=== PATIENT | female | born 1960 | race Caucasian/White ===

== ENCOUNTER → 2016-03-28 | Outpatient (CLI) | payer OTHER ==
[~2016-03-28] MED LIST: CALC600T21 PO; DOCU10CA PO; IBUP80TA PO; MAGN250T5 PO; MULTCAP PO; PERCOCET PO; RANI15TA PO; clonazepam OR
--- NOTE | 2016-03-28 08:13 | REP ---
Clinical: Chest pain and abnormality on the outside x-ray. Comparison: 11/15/2013, 10/09/2012. Findings: Mild COPD/emphysematous changes involving the upper lung zones (right greater than left) is suggested. A small focal density in the right lower lobe adjacent to the major fissure (image 53) along with two small noncalcified nodules in the periphery of the left lower lobe (image 82, 94) are essentially unchanged when compared to 2013. A small area of ground-glass / alveolar opacity in the lingula may reflect mild early versus resolving area of pneumonia. No further areas of consolidation, atelectasis, significant nodule or mass lesion appreciated. No pleural effusion/reaction or pneumothorax. Tracheobronchial tree is patent. No obvious adenopathy. Mediastinum demonstrates minimal atherosclerotic changes to the thoracic aorta and coronary arteries without cardiomegaly, pericardial effusion, or aortic aneurysm. Surrounding musculoskeletal structures are intact. Limited evaluation of the upper abdomen demonstrates normal bilateral adrenal glands. Impression: Roughly three small areas of chronic density remain essentially unchanged compared to 2013. Small subtle areas of alveolar/ground-glass infiltrate in the lingular segment of the left upper lobe may reflect acute versus resolving pneumonia and should be correlated clinically. Signed by Tomas Teague MD 03/28/2016 08:04 A
== END | disposition home or self-care (01) ==
LOC: M RAD 06:55
PROVIDERS: ATTEND Internal Medicine
DX: R91.8 Other nonspecific abnormal finding of lung field (principal); J44.9 Chronic obstructive pulmonary disease, unspecified

== ENCOUNTER → 2016-04-16 | Outpatient (REF) | payer OTHER ==
[2016-04-16 15:42] LABS: EOS # 0.1 K/mm3 (0.0-0.50); EOS % 1.3 % (0.0-3.0); LARGE UNSTAINED CELL # 0.1 K/mm3 (0.0-0.4); LYMPH # 1.6 K/mm3 (1.5-4.5); LYMPH % 33.7 % (24.0-44.0); MEAN CORPUSCULAR HEMOGLOBIN 29.9 pg (27.0-33.0); MEAN CORPUSCULAR HGB CONC 33.4 g/dl (32.0-36.5); MEAN CORPUSCULAR VOLUME 89.6 fl (80.0-96.0); MONO # 0.2 K/mm3 (0.0-0.8); MONO % 3.8 % (0.0-5.0); NEUTROPHILS # 2.7 K/mm3 (1.8-7.7); NEUTROPHILS % 57.1 % (36.0-66.0); PLATELET COUNT, AUTOMATED 327 k/mm3 (150-450); RED CELL DISTRIBUTION WIDTH 12.6 % (11.5-14.5); WHITE BLOOD COUNT 4.6 K/mm3 (4.0-10.0)
[2016-04-16 15:50] LABS: INR 0.92
[2016-04-16 16:14] LABS: ALBUMIN/GLOBULIN RATIO 1.29 (1.00-1.93); ALKALINE PHOSPHATASE 75 U/L (45-117); ALT/SGPT 21 U/L (12-78); ANION GAP 10 MEQ/L (8-16); AST/SGOT 16 U/L (15-37); BILIRUBIN,TOTAL 0.7 MG/DL (0.2-1.0); BLOOD UREA NITROGEN 13 MG/DL (7-18); CALCIUM LEVEL 9.1 MG/DL (8.5-10.1); CARBON DIOXIDE LEVEL 25 MEQ/L (21-32); CHLORIDE LEVEL 107 MEQ/L (98-107); CREATININE FOR GFR 0.82 MG/DL (0.55-1.02); GLOMERULAR FILTRATION RATE > 60.0 (>51); GLUCOSE, FASTING 91 MG/DL (70-105); POTASSIUM SERUM 4.1 MEQ/L (3.5-5.1); SODIUM LEVEL 142 MEQ/L (136-145); TOTAL PROTEIN 7.1 GM/DL (6.4-8.2)
[2016-04-16 16:27] LABS: ERYTHROCYTE SEDIMENTATION RATE 7 mm/hr (0-30)
[2016-04-19 00:07] LABS: Lyme Disease IgG/IgM Antibodie <0.91 ISR (0.00-0.90); Lyme Disease IgM Ab Quantitati <0.80 index (0.00-0.79)
== END ==
LOC: M LABDRAW1 15:27
PROVIDERS: ATTEND Internal Medicine Rheumatology
DX: Z51.81 Encounter for therapeutic drug level monitoring (principal); Z79.899 Other long term (current) drug therapy; M35.9 Systemic involvement of connective tissue, unspecified; E55.9 Vitamin D deficiency, unspecified; R53.83 Other fatigue; E23.3 Hypothalamic dysfunction, not elsewhere classified

== ENCOUNTER → 2016-07-01 | Outpatient (CLI) | payer OTHER ==
[~2016-07-01] VITALS: Ht 170.2 cm; Wt 70.8 kg
[~2016-07-01] MED LIST changes: +ACID1CAP PO; +CLAR10CA3 PO; +IBUP200C PO; +LIDOCAINE 2% INJ 100 MG/5 ML SDV (FOR ANES.) As Ordered ONE; +NEXI20CA PO; +NS 1,000 ML IV ONE; +PROPOFOL 200 MG/20 ML VIAL As Ordered ONE
--- NOTE | 2016-07-01 11:10 | ROOR ---
Patient Name: Nica Mccarthy Procedure Date: 07/01/2016 10:56 AM Date of : 1960 Age: 56 Room: [facility] Gender: Female Note Status: Finalized Procedure: Upper GI endoscopy Indications: Abdominal pain in the right upper quadrant, Heartburn, Follow-up of irritable bowel syndrome Providers: Wellington CONNER MD Referring MD: GLORIA CASRTO MD Requesting Provider: Medicines: Monitored Anesthesia Care Complications: No immediate complications. Procedure: Pre-Anesthesia Assessment: - The heart rate, respiratory rate, oxygen saturations, blood pressure, adequacy of pulmonary ventilation, and response to care were monitored throughout the procedure. The Endoscope was introduced through the mouth, and advanced to the third part of duodenum. The upper GI endoscopy was accomplished without difficulty. The patient tolerated the procedure well. Findings: A small scar was found in the lower third of the esophagus. The scar was unremarkable in appearance. A few small sessile fundic gland polyps were found in the gastric body. The esophagus was normal. The stomach was normal. The examined duodenum was normal. Impression: - Normal esophagus. Small Scar in the lower third of the esophagus - Normal stomach. A few small fundic gland polyps - Normal examined duodenum. - No specimens collected. Recommendation: - Observe patient's clinical course. - I anticipate no further need for intervention. - Continue present medications. Wellington Conner MD Wellington CONNER MD 07/01/2016 11:10:17 AM This report has been signed electronically. Number of Addenda: 0 Note Initiated On: 07/01/2016 10:56 AM Estimated Blood Loss: Estimated blood loss: none. Estimated blood loss: none.
[2016-07-01 11:30] VITALS: BP 140/86
== END | disposition home or self-care (01) ==
LOC: M OPP 09:58
PROVIDERS: ATTEND Internal Medicine Gastroenterology
DX: R10.11 Right upper quadrant pain (principal); R12 Heartburn; K58.9 Irritable bowel syndrome, unspecified; K22.8 Other specified diseases of esophagus; K31.7 Polyp of stomach and duodenum; M19.90 Unspecified osteoarthritis, unspecified site; M54.2 Cervicalgia; R06.83 Snoring; D64.9 Anemia, unspecified; Z85.828 Personal history of other malignant neoplasm of skin; Z87.891 Personal history of nicotine dependence; Z88.8 Allergy status to other drugs, medicaments and biological substances; Z91.040 Latex allergy status; Z91.048 Other nonmedicinal substance allergy status; Z79.899 Other long term (current) drug therapy; Z80.1 Family history of malignant neoplasm of trachea, bronchus and lung

== ENCOUNTER → 2018-08-05 | Outpatient (CLI) | payer OTHER ==
[~2018-08-05] MED LIST changes: -CALC600T21 PO; +CALC600T60 PO; -IBUP200C PO; +IBUP200C25 PO; -LIDOCAINE 2% INJ 100 MG/5 ML SDV (FOR ANES.) As Ordered ONE; -MAGN250T5 PO; +MAGN250T6 PO; -NS 1,000 ML IV ONE; -PROPOFOL 200 MG/20 ML VIAL As Ordered ONE
[2018-08-05 15:33] LABS: BASO # 0.1 10^3/uL (0.0-0.2); BASO % 1.3 % (0.0-1.0); EOS # 0.1 10^3/uL (0.0-0.50); EOS % 2.8 % (0.0-3.0); HEMATOCRIT 37.5 % (36.0-47.0); HEMOGLOBIN 12.7 g/dl (12.0-15.5); LYMPH # 1.8 10^3/uL (1.5-4.5); LYMPH % 38.5 % (24.0-44.0); MEAN CORPUSCULAR HEMOGLOBIN 30.7 pg (27.0-33.0); MEAN CORPUSCULAR HGB CONC 33.9 g/dl (32.0-36.5); MEAN CORPUSCULAR VOLUME 90.6 fl (80.0-96.0); MONO # 0.4 10^3/uL (0.0-0.8); MONO % 7.7 % (0.0-5.0); NEUTROPHILS # 2.3 10^3/uL (1.8-7.7); NEUTROPHILS % 49.5 % (36.0-66.0); PLATELET COUNT, AUTOMATED 281 10^3/uL (150-450); RED BLOOD COUNT 4.14 10^6/uL (4.00-5.40); WHITE BLOOD COUNT 4.7 10^3/uL (4.0-10.0)
[2018-08-05 15:51] LABS: ALBUMIN 3.8 GM/DL (3.2-5.2); ALT/SGPT 23 U/L (12-78); BILIRUBIN,TOTAL 0.6 MG/DL (0.2-1.0); BLOOD UREA NITROGEN 19 MG/DL (7-18); CALCIUM LEVEL 8.3 MG/DL (8.5-10.1); CARBON DIOXIDE LEVEL 27 MEQ/L (21-32); CHLORIDE LEVEL 110 MEQ/L (98-107); FREE T4 1.36 NG/DL (0.76-1.46); GLOMERULAR FILTRATION RATE > 60.0 (>51); GLUCOSE, FASTING 100 MG/DL (70-100); SODIUM LEVEL 141 MEQ/L (136-145); TOTAL PROTEIN 7.2 GM/DL (6.4-8.2)
== END ==
LOC: M LAB 14:32
PROVIDERS: ATTEND Internal Medicine Gastroenterology
DX: R10.9 Unspecified abdominal pain (principal)

== ENCOUNTER 2018-10-09 10:27 | Day surgery (SDC) | payer OTHER ==
[~2018-10-09] VITALS: Ht 170.2 cm; Wt 70.3 kg
[~2018-10-09 10:27] MED LIST changes: +HYDR-3363 PO; +NS 1,000 ML IV ONE; +[UNRECOGNIZED DRUG - CODE] PO
[2018-10-09] MEDS ORDERED: fentaNYL 100 MCG/2 ML INJECTION (J3010) As Ordered ONE (12:36)
[2018-10-09] MEDS ORDERED: LIDOCAINE 2% INJ 100 MG/5 ML SDV (FOR ANES.) As Ordered ONE (12:36)
[2018-10-09] MEDS ORDERED: PROPOFOL 200 MG/20 ML VIAL As Ordered ONE (12:36)
--- NOTE | 2018-10-09 12:49 | ROOR ---
Patient Name: Nica Mccarthy Procedure Date: 10/09/2018 12:33 PM Date of : 1960 Age: 58 Room: [facility] Gender: Female Note Status: Finalized Procedure: Upper GI endoscopy Indications: Abdominal pain Providers: Wellington CONNER MD Referring MD: GLORIA Norris MD Requesting Provider: Medicines: Monitored Anesthesia Care Complications: No immediate complications. Procedure: Pre-Anesthesia Assessment: - The heart rate, respiratory rate, oxygen saturations, blood pressure, adequacy of pulmonary ventilation, and response to care were monitored throughout the procedure. The Endoscope was introduced through the mouth, and advanced to the second part of duodenum. The upper GI endoscopy was accomplished without difficulty. The patient tolerated the procedure well. Findings: The esophagus was normal. The stomach was normal. (compliant stomach) The examined duodenum was normal. Impression: - Normal esophagus. - Normal stomach. - Normal examined duodenum. - No specimens collected. Recommendation: - Observe patient's clinical course. - Follow an antireflux regimen. - Eat smaller, more frequent meals throughout the day. - Low fat diet. - Liquid/soft foods are tolerated better than solid foods. - Low fiber/well cooked vegetables are tolerated better than high fiber/fibrous foods/raw vegetables. - Avoid medications that inhibit gastric/intestinal motility such as narcotic medications. Wellington Conner MD Wellington CONNER MD 10/09/2018 12:49:12 PM Electronically signed by Wellington CONNER MD Number of Addenda: 0 Note Initiated On: 10/09/2018 12:33 PM Estimated Blood Loss: Estimated blood loss: none.
--- NOTE | 2018-10-09 13:04 | ROOR ---
Patient Name: Nica Mccarthy Procedure Date: 10/09/2018 12:35 PM Date of : 1960 Age: 58 Room: [facility] Gender: Female Note Status: Finalized Procedure: Colonoscopy Indications: Generalized abdominal pain, Mixed irritable bowel syndrome, Change in bowel habits Providers: Wellington CONNER MD Referring MD: GLORIA CASTRO MD Requesting Provider: Medicines: Monitored Anesthesia Care Complications: No immediate complications. Procedure: Pre-Anesthesia Assessment: - The heart rate, respiratory rate, oxygen saturations, blood pressure, adequacy of pulmonary ventilation, and response to care were monitored throughout the procedure. The Colonoscope was introduced through the anus and advanced to 10 cm into the ileum. The colonoscopy was performed without difficulty. The patient tolerated the procedure well. The quality of the bowel preparation was good. Findings: The perianal and digital rectal examinations were normal. The colon (entire examined portion) appeared normal. The terminal ileum appeared normal. Small Internal Hemorrhoids. Impression: - The entire examined colon is normal. - The examined portion of the ileum was normal. - Small Internal Hemorrhoids. - No specimens collected. Recommendation: - Continue present medications. Wellington Conner MD Wellington CONNER MD 10/09/2018 1:04:14 PM Electronically signed by Wellington CONNER MD Number of Addenda: 0 Note Initiated On: 10/09/2018 12:35 PM Estimated Blood Loss: Estimated blood loss: none.
[2018-10-09 13:34] VITALS: BP 125/91
== END 2018-10-09 13:35 | disposition home or self-care (01) ==
LOC: M OPP 10:27
PROVIDERS: ATTEND Internal Medicine Gastroenterology
DX: K64.8 Other hemorrhoids (principal); R10.84 Generalized abdominal pain; K58.2 Mixed irritable bowel syndrome; R19.4 Change in bowel habit; Z88.1 Allergy status to other antibiotic agents; Z91.048 Other nonmedicinal substance allergy status
CPT/HCPCS: 43235; 45378; J3010

== ENCOUNTER → 2019-09-30 | Outpatient (CLI) | payer OTHER ==
[~2019-09-30] MED LIST changes: +HM A5TAB4 PO; -NS 1,000 ML IV ONE; -[UNRECOGNIZED DRUG - CODE] PO
--- NOTE | 2019-11-16 09:23 | REP ---
CT CHEST WITHOUT CONTRAST HISTORY: Other nonspecific abnormal finding of lung field. COMPARISON: Chest CT study reviewed from 04/02/2016. There is a 11/15/[address] study as well. CT FINDINGS: There are surgical clips in the gallbladder fossa. No adrenal lesion is observed on either side. A small cyst is seen in the left lobe of the liver unchanged. There is no evidence of hilar or mediastinal mass or adenopathy. There is left coronary artery vascular calcification. There is a pleural-based nodule in the right lower lobe measuring 6 mm in diameter unchanged from the 11/15/2013 and 03/28/2016 prior study. There are multiple tiny subcentimeter nodules in the left lower lobe, which are also unchanged from the comparison CT study in 2013 and are felt to be benign. There is an area of linear fibrosis in the right middle lobe and a small linear fibrotic density seen in the right middle lobe anteriorly. These findings are unchanged from the comparison CT studies as well. No new pulmonary nodule is appreciated. No infiltrate is seen. The most recent prior study showed a ground- glass opacity in the left upper lobe. This is not seen today. IMPRESSION: Stable pulmonary nodules bilaterally as above. MTDD
== END ==
LOC: M RAD 11:13
PROVIDERS: ATTEND Internal Medicine Pulmonary Disease
DX: R91.8 Other nonspecific abnormal finding of lung field (principal)

== ENCOUNTER → 2020-10-11 | Outpatient (CLI) | payer OTHER ==
[~2020-10-11] MED LIST changes: -HM A5TAB4 PO; +LACT1TAB9 PO
--- NOTE | 2020-10-11 21:36 | REP ---
INDICATION: NICOTINE DEPEND H/O COMPARISON: 09/30/2019, 03/28/2016 TECHNIQUE: Axial noncontrast images from the thoracic inlet to the upper abdomen using low-dose lung screening technique (LDCT). FINDINGS: Lung mccullough demonstrate age-related interstitial changes. 6.5 mm noncalcified perifissural nodule in the right mid lung zone (series 201; image 52) along with few scattered small subpleural nodules in the left lower lobe measuring up to 3 mm remains stable through 2017. No acute consolidation, or new suspicious nodule/mass. No effusion. No pneumothorax. Tracheobronchial tree is patent. IMPRESSION: Lung-RADS category 2. Stable noncalcified nodules unchanged through 2017. Management recommendations include annual low-dose CT surveillance. <Electronically signed by Tomas Teague > 10/11/20 [id number]
== END ==
LOC: M RAD 15:25
PROVIDERS: ATTEND Internal Medicine Pulmonary Disease
DX: F17.200 Nicotine dependence, unspecified, uncomplicated (principal)

== ENCOUNTER → 2020-12-18 | Outpatient (CLI) | payer OTHER ==
--- NOTE | 2020-12-18 15:02 | REPMRS ---
Patient History The patient states she has not had a clinical breast exam in over a year. Patient is postmenopausal and has history of other cancer at age 47. Family history of breast cancer at age 77 in mother. Patient states no breast complaints today. Patient has signed MRS History Sheet. Digital Woman Screen Mammo: December 18, 2020 - Exam #: [id number] Bilateral CC and MLO view(s) were taken. Technologist: Rossi Puente, Technologist Prior study comparison: November 16, 2019, bilateral digital mammo screening bilat, performed at [facility]. August 05, 2018, bilateral digital mammo screening bilat, performed at [facility]. FINDINGS: There are scattered fibroglandular densities. Screening. Digital screening (2D) mammography was performed bilaterally in the CC and MLO projections. Additionally, breast tomosynthesis (3D mammography) was performed bilaterally in the CC and MLO projections. Todays exam was compared to the prior exam/exams. By history, the patient has no complaints of a palpable breast abnormality or other significant breast complaints. The Volpara volumetric breast density category is B, there are scattered areas of fibroglandular densities. The breasts are unchanged in size and shape. There are no jose-soft tissue densities or spiculated masses. There is no internal architectural distortion. There are no suspicious jose-calcific clusters. Skin thickening or nipple retraction is not present. IMPRESSION: BI-RADS Category 2- Benign Findings. There is no evidence of malignant alteration of the breasts. Followup examination recommended in one year. The lifetime Tyrer-Cuzick score is 14.7% This mammogram was read with the assistance of Bret [place],an FDA approved computer aided detection system for mammography. Negative x-ray reports should not delay surgical consultation if a dominant or clinically suspicious mass is present. Not all breast cancers can be identified by mammography. Therefore, we recommend that you continue to perform regular breast self-examination and physical examination and then promptly contact your physician of any concerns or changes. Adenosis and dense breasts may obscure an underlying neoplasm. No significant changes when compared with prior studies. Assessment: BI-RADS/ACR category 2 mammogram. Benign Findings. Recommendation Routine screening mammogram of both breasts in 1 year. Electronically Signed By: Neftaly Morillo MD 12/18/20 [id number]
== END ==
LOC: M WHC 11:20
PROVIDERS: ATTEND Family Medicine
DX: Z12.31 Encounter for screening mammogram for malignant neoplasm of breast (principal)

== ENCOUNTER → 2021-10-18 | Outpatient (CLI) | payer OTHER | LOC: M RAD 13:30 | PROVIDERS: ATTEND Internal Medicine Pulmonary Disease | DX: Z12.2 Encounter for screening for malignant neoplasm of respiratory organs (principal); Z87.891 Personal history of nicotine dependence ==

== ENCOUNTER → 2021-12-27 | Outpatient (CLI) | payer OTHER | LOC: M WHC 12:32 | PROVIDERS: ATTEND Family Medicine | DX: Z12.31 Encounter for screening mammogram for malignant neoplasm of breast (principal) ==

== ENCOUNTER → 2022-10-22 | Outpatient (CLI) | payer OTHER | LOC: M RAD 14:36 | PROVIDERS: ATTEND Internal Medicine Pulmonary Disease | DX: Z87.891 Personal history of nicotine dependence (principal) ==

== ENCOUNTER → 2023-01-07 | Outpatient (CLI) | payer OTHER | LOC: M WHC 15:07 | PROVIDERS: ATTEND Family Medicine | DX: Z12.31 Encounter for screening mammogram for malignant neoplasm of breast (principal) ==

== ENCOUNTER → 2023-11-11 | Outpatient (CLI) | payer OTHER | LOC: M RAD 14:25 | PROVIDERS: ATTEND Internal Medicine Pulmonary Disease | DX: Z87.891 Personal history of nicotine dependence (principal) ==

== ENCOUNTER → 2024-01-20 | Outpatient (CLI) | payer OTHER | LOC: M WHC 14:00 | PROVIDERS: ATTEND Student in an Organized Health Care Education/Training Program | DX: Z12.31 Encounter for screening mammogram for malignant neoplasm of breast (principal) ==

== ENCOUNTER 2024-06-17 10:57 | Day surgery (SDC) | payer OTHER ==
[~2024-06-17] VITALS: Ht 170.2 cm; Wt 70.2 kg
[~2024-06-17 10:57] MED LIST changes: +ASCO500C3 PO; +CALC600T17 PO; +OMEP-173 PO; +THERTAB52 PO; +VITA100054 PO
[2024-06-17] MEDS ORDERED: propofoL 200 MG/20 ML VIAL As Ordered ONE (12:13)
[2024-06-17] MEDS ORDERED: fentaNYL 100 MCG/2 ML INJECTION As Ordered ONE (12:13)
[2024-06-17] MEDS ORDERED: LIDOCAINE 2% 100MG/5ML SDV (FOR ANES.) As Ordered ONE (12:13)
[2024-06-17] MEDS ORDERED: GLYCOPYRROLATE INJ 0.2 MG/ML 2 ML VIAL As Ordered ONE (12:38)
[2024-06-17 12:58] VITALS: TEMP 98.1
[2024-06-17 13:18] VITALS: BP 163/90; O2SAT 99
== END 2024-06-17 13:20 | disposition home or self-care (01) ==
LOC: M OPP 10:57
PROVIDERS: ATTEND Internal Medicine Gastroenterology
DX: K31.7 Polyp of stomach and duodenum (principal); R13.10 Dysphagia, unspecified; R12 Heartburn; Z88.1 Allergy status to other antibiotic agents; Z91.040 Latex allergy status; Z91.048 Other nonmedicinal substance allergy status; Z88.8 Allergy status to other drugs, medicaments and biological substances; Z79.899 Other long term (current) drug therapy
CPT/HCPCS: 43239; 43251; 43450; 88305; J1596; J3010

== ENCOUNTER → 2025-01-11 | Outpatient (REF) | payer MEDICARE, OTHER ==
[~2025-01-11] MED LIST changes: +CHOL25CA2 PO; -VITA100054 PO
== END ==
LOC: M SFHCDERM 16:45
PROVIDERS: ATTEND Dermatology
DX: L53.9 Erythematous condition, unspecified (principal)